=== PATIENT | female | born 1990 | race Caucasian/White ===

== ENCOUNTER 2021-09-28 16:52 | Emergency (ER) | payer SELFPAY ==
[~2021-09-28] VITALS: Ht 152.4 cm; Wt 80.0 kg
[~2021-09-28 16:52] MED LIST: ACET325T9 PO; ALBU0.63 NEB; ALPR0.5T PO; BUTA-14 PO; DICY10CA53 PO; HYDR-3165 PO; OMEP20TA63 PO; ONDA4TAB10 PO; OXYC1TAB15 PO; PNV1TABL25 PO; TRAM50TA PO
[2021-09-28 18:21] VITALS: BP 137/67
[2021-09-28] MEDS ORDERED: ACETAMINOPHEN 500 MG TABLET PO ONE (18:30)
--- NOTE | 2021-09-28 18:54 | RAD ---
XR CHEST 2V History: Reason: cough / Spl. Instructions: / History: Comparison: None. Findings: No consolidation or pleural effusion. Normal heart size. No pneumothorax. Impression: 1. No acute cardiopulmonary process. Electronically signed by: Chester Arciniega DO (09/28/2021 6:51 PM) [facility] [place]
--- NOTE | 2021-09-28 19:19 | PHYS DOC ---
Past History Past Medical History: Anxiety, Asthma, Depression Past Surgical History: Cholecystectomy, , Tubal ligation, Other Smoking: Cigarettes, Less than 1pk/day Alcohol Use: None Drug Use: Amphetamine General Adult EDM: Chief Complaint: HEADACHE HPI: HPI: 31-year-old female presents with cough, headache, congestion, body aches, fatigue. She is concerned about having COVID-19. She has fully vaccinated and has had Covid in the past. She has several COVID-19 and influenza sick contacts lately. Review of Systems: Review of Systems: Constitutional: Denies fever or chills. Body aches, fatigue Eyes: Denies change in visual acuity HENT: Denies nasal congestion or sore throat Respiratory: Cough without shortness of breath Cardiovascular: Denies chest pain or edema GI: Denies abdominal pain, nausea, vomiting, bloody stools or diarrhea : Denies dysuria Musculoskeletal: Denies back pain or joint pain Integument: Denies rash Neurologic: Headache. Denies focal weakness or sensory changes Endocrine: Denies polyuria or polydipsia Lymphatic: Denies swollen glands Psychiatric: Denies depression or anxiety Current Medications: Current Meds: Current Medications Medications (Trade) Dose Ordered Sig/Jose Angel Start Time Stop Time Status Last Admin Dose Admin Acetaminophen (Tylenol) 1,000 mg 1X ONCE 09/28/21 18:30 09/28/21 18:38 DC Allergies: Allergies: Allergies Coded Allergies Type Severity Reaction Last Updated Verified nickel Allergy Intermediate Rash 11/14/13 Yes morphine Adverse Reaction Intermediate Nausea 08/14/15 Yes Physical Exam: PE: Constitutional: Well developed, well nourished, no acute distress, non-toxic appearance. [] HENT: Normocephalic, atraumatic, bilateral external ears normal, oropharynx moist, no oral exudates, nose normal. [] Eyes: PERRLA, EOMI, conjunctiva normal, no discharge. [] Neck: Normal range of motion, no tenderness, supple, no stridor. [] Cardiovascular:Heart rate regular rhythm, no murmur [] Lungs & Thorax: Bilateral breath sounds clear to auscultation [] Abdomen: Bowel sounds normal, soft, no tenderness, no masses, no pulsatile masses. [] Skin: Warm, dry, no erythema, no rash. [] Back: No tenderness, no CVA tenderness. [] Extremities: No tenderness, no cyanosis, no clubbing, ROM intact, no edema. [] Neurologic: Alert and oriented X 3, normal motor function, normal sensory function, no focal deficits noted. [] Psychologic: Affect normal, judgement normal, mood normal. [] Current Patient Data: Vital Signs: Vital Signs Date Time Temp Pulse Resp B/P (MAP) Pulse Ox O2 Delivery O2 Flow Rate FiO2 09/28/21 18:21 98.8 64 18 137/67 (90) 99 Room Air EKG: EKG: [] Radiology/Procedures: Radiology/Procedures: [] Impressions: XR CHEST 2V History: Reason: cough / Spl. Instructions: / History: Comparison: None. Findings: No consolidation or pleural effusion. Normal heart size. No pneumothorax. Impression: 1. No acute cardiopulmonary process. Electronically signed by: Chester Akbar DO (09/28/2021 6:51 PM) [facility] DICTATED AND SIGNED BY: CHESTER AKBAR DO DATE: 09/28/21 185 CC: WAYNE OLMOS DO; EMERGENCY,DEPARTMENT; PCP,NO ~MTH0 0 Heart Score: C/O Chest Pain: N/A Risk Factors: Risk Factors: DM, Current or recent (<one month) smoker, HTN, HLP, family history of CAD, obesity. Risk Scores: Score 0 - 3: 2.5% MACE over next 6 weeks - Discharge Home Score 4 - 6: 20.3% MACE over next 6 weeks - Admit for Clinical Observation Score 7 - 10: 72.7% MACE over next 6 weeks - Early Invasive Strategies Course & Med Decision Making: Course & Med Decision Making Pertinent Labs and Imaging studies reviewed. (See chart for details) Patient's chest x-ray is negative for acute findings. We will swab the patient for influenza and COVID-19. She will be informed when these results are available. She is stable for discharge at this time. Patient is negative for influenza and strep. This is likely COVID-19. [] Dragon Disclaimer: Dragon Disclaimer: This electronic medical record was generated, in whole or in part, using a voice recognition dictation system. Departure Departure: Impression: Primary Impression: COVID-19 Disposition: HOME / SELF CARE / HOMELESS Condition: STABLE Referrals: PCP,JENNIFER (PCP) Patient Instructions: Viral Syndrome Additional Instructions: You have been tested for or diagnosed with COVID-19. It is an infection caused by a new type of coronavirus. COVID-19 will cause cold-like or mild flu symptoms in most. It can cause more severe symptoms like problems breathing in some. There is no treatment for COVID-19. The body will clear the infection over time. Self-care will help to ease discomfort. Steps to Take: Self-Care Rest as needed. Healthy habits may help you feel better. Steps include: Choose healthy foods including fruits and vegetables. Drink water throughout the day. Get plenty of sleep each night. If you smoke, try to quit. It may ease breathing. Avoid alcohol. Keep Others Healthy The virus can spread to others. Droplets are released every time you sneeze or cough. The droplets can get into the mouth, nose, or eyes of people near you and lead to infection. To lower the chances of spreading COVID-19 to others: Stay at home until your doctor has said it is safe to leave. If you tested positive this will mean staying isolated until both of the following are true: At least 7 days have passed since the start of illness. You are free of fever for at least 72 hours without the use of medicine. During this time: - Avoid public areas, events, or transportation. Do not return to work or school until your doctor has said it is safe to do so. - Call ahead if you need to go to a medical center. Let them know you may have COVID-19. It will help them guide you where to go. They may also ask you to wear a facemask when you come to the office. - If you call for emergency medical services, let them know you may have COVID- 19. While at home: - Try to avoid close contact with others. Stay about 6 feet away. - If possible, spend most of your time in a separate room from others. - Use a face mask if you will be in close contact with others such as sharing a room or vehicle. - Have someone wipe down common surfaces in the home. Use household insurance plan specialist every day on areas like doorknobs, counters, or sinks. - Cough or sneeze into a tissue. Throw the tissue away right after use. If a tissue is not available, cough or sneeze into your elbow. - Wash your hands often. Wash them after sneezing or coughing. Use soap and water and wash for at least 20 seconds. Alcohol based hand house cleaner can be used if soap and water is not available. - Do not prepare food for others. Avoid sharing personal items like forks, spoons, or toothbrushes. - Avoid close contact with pets while you are sick. There is no evidence of the virus passing to pets. This is a safety step until more is known about this virus. Isolation can be frustrating. Social interaction can help. Keep in touch with friends and family through phone and tech options. You can still interact with others in your home, just keep a safe distance of about 6 feet. Follow-up: Your doctors office will check in with you to see if there are any changes in your health. You may be asked to keep track of symptoms to share with them. They will also let you know when you are clear to be in public again. Problems to Look Out For: Contact your doctor if your recovery is not going as you expect. Get emergency care if you have problems such as: - Trouble breathing - Nonstop chest pain or pressure - Changes in awareness, confusion, or problems waking - Lips or face have bluish color - Worsening of symptoms If you think you have an emergency, call for emergency medical services right away. As taken from [facility] WAYNE OLMOS DO Sep 28, 2021 19:19
[2021-09-28 20:31] LABS: INFLUENZA A PATIENT NEGATIVE (NEGATIVE); INFLUENZA B PATIENT NEGATIVE (NEGATIVE)
== END 2021-09-28 20:50 | disposition home or self-care (01) ==
LOC: ER 16:52
DX: U07.1 COVID-19 (principal); F41.9 Anxiety disorder, unspecified; J45.909 Unspecified asthma, uncomplicated; F32.9 Major depressive disorder, single episode, unspecified; F17.210 Nicotine dependence, cigarettes, uncomplicated; Z88.5 Allergy status to narcotic agent; Z88.8 Allergy status to other drugs, medicaments and biological substances
CPT/HCPCS: 71046; 87070; 87804; 87880; 99284; C9803; U0003

== ENCOUNTER 2022-01-16 23:38 | Emergency (ER) | payer SELFPAY ==
[~2022-01-16] VITALS: Ht 152.4 cm; Wt 90.9 kg
--- NOTE | 2022-01-17 00:19 | PHYS DOC ---
Past History Past Medical History: Anxiety, Asthma, Bronchitis, Depression, Migraines Past Surgical History: Cholecystectomy Additional Past Surgical Histo: Smoking: Cigarettes, Less than 1pk/day Alcohol Use: None Drug Use: Amphetamine General Adult EDM: Chief Complaint: COUGH HPI: HPI: ".. I am coughing so much .. I puke.. it been constant the last 3 days. ,," " I was at [facility] yesterday..they did a full workup on me..and only said my labs were off..but didnt give me any for my cough...or may that were off.. " Patient is a 31 year old female who presents with complaints of cough spasm to point of vomiting. Pt. was seen yesterday at [facility] and reports having a complete work-up of her chest pain , cough which included CT..of her chest. Patient states however they told her her labs were abnormal or off a little..but they did nothing to correct it. Patient has continued to smoke. D oes have a past history of anxiety, asthma, depression, migraine headache and polysubstance abuse. Has had in past history of cholecystectomy, C-sections, tubal ligations,. Patient is an adamant about never getting any vaccinations. Patient states refused to take any vaccinations since she was a child.. Patient states she has medical friends at ...they and she believes in Herd immunity.. Patient became very angry when I inquired about her refusal to take any vaccinations. Advised I should not ask about her vaccination status. Patient does admit to contact with several individuals that had COVID-19 and influenza. Patient states she has already had COVID in the past. Pt. implied she needed a narcotic cough suppressant. Reviewed patient's record from prior visit on 09/28/21-at that time she reports she was fully vaccinated. Patient left from [facility] before completing her evaluation. Patient encouraged to return if she wished to complete her evaluation. Note pt.refusing to wear a mask while in [facility]. Review of Systems: Review of Systems: Constitutional: Denies fever or chills Eyes: Denies change in visual acuity HENT: Complains of nasal congestion, and drainage Respiratory: Complains of coughing spasms, cough cough is nonproductive. Complains of wheezing . Cardiovascular: Denies chest pain or edema GI: Denies abdominal pain, nausea, , bloody stools or diarrhea . Complains of vomiting after coughing spasms : Denies dysuria Musculoskeletal: Denies back pain or joint pain Integument: Denies rash Neurologic: Complains headache after coughing specimen. Patient denies, focal weakness or sensory changes Endocrine: Denies polyuria or polydipsia Lymphatic: Denies swollen glands Psychiatric: Denies depression or anxiety Family History: Family History: Noncontributory Current Medications: Current Meds: See nursing for home meds Allergies: Allergies: Allergies Coded Allergies Type Severity Reaction Last Updated Verified nickel Allergy Intermediate Rash 11/14/13 Yes morphine Adverse Reaction Intermediate Nausea 08/14/15 Yes Physical Exam: PE: Constitutional: Reports moderate acute distress, non-toxic appearance. [] HENT: Normocephalic, atraumatic, bilateral external ears normal, oropharynx moist, no oral exudates, nose swollen turbinates and clear rhinorrhea Eyes: PERRLA, EOMI, conjunctiva normal, no discharge. [] Neck: Normal range of motion, no tenderness, supple, no stridor. [] Cardiovascular:Heart rate regular rhythm, no murmur [] Lungs & Thorax: Bilateral breath sounds equal apex with scattered wheezes on auscultation [] Abdomen: Bowel sounds normal, soft, no tenderness, no masses, no pulsatile christine s. Surgery scars Skin: Warm, dry, no erythema, no rash. [] Back: No tenderness, no CVA tenderness. [] Extremities: No tenderness, no cyanosis, no clubbing, ROM intact, no edema. Ambulatory without problems. Neurologic: Alert and oriented X 3, moves all extremities on request, has distal sensory,, no focal deficits noted. [] Psychologic: Affect angry anxious,, judgement normal, mood normal. [] Current Patient Data: Vital Signs: Vital Signs Date Time Temp Pulse Resp B/P (MAP) Pulse Ox O2 Delivery O2 Flow Rate FiO2 01/16/22 23:53 98.2 72 16 124/75 (91) 96 Room Air EKG: EKG: Refused [] Radiology/Procedures: Radiology/Procedures: Refused [] Heart Score: C/O Chest Pain: Yes Risk Factors: Risk Factors: DM, Current or recent (<one month) smoker, HTN, HLP, family history of CAD, obesity. Risk Scores: Score 0 - 3: 2.5% MACE over next 6 weeks - Discharge Home Score 4 - 6: 20.3% MACE over next 6 weeks - Admit for Clinical Observation Score 7 - 10: 72.7% MACE over next 6 weeks - Early Invasive Strategies Course & Med Decision Making: Course & Med Decision Making Pertinent Labs and Imaging studies reviewed. (See chart for details) Patient left before completing labs, EKG or x-rays or complete evaluation.. Patient advised I should not ask about her vaccination status or her exposures. Impression: 1. Bronchitis 2 Tobacco Use 3. Hx.of Polysubstance Use ( Methamphetamine) 4. Hx of Non-vaccination- 5. Pt. rapid COVID and Flu were negative. [] Dragon Disclaimer: Dragon Disclaimer: This electronic medical record was generated, in whole or in part, using a voice recognition dictation system. Departure Departure: Referrals: PCP,NO (PCP) Scripts Azithromycin (ZITHROMAX) 250 Mg Tablet 250 MG PO DAILY for ANTI-BIOTIC for 5 Days, #5 TAB 0 Refills Prov: NATHANIEL NICHOLAS MD 01/17/22 Dragayanna Disclaimer This chart was dictated in whole or in part using Voice Recognition software in a busy, high-work load, and often noisy Emergency Department environment. It may contain unintended and wholly unrecognized errors or omissions. NATHANIEL NICHOLAS MD Jan 17, 2022 00:19
[2022-01-17] MEDS: ALBUTEROL SULFATE 8GM INHALER. INH ONE (01:00)
[2022-01-17] MEDS: predniSONE 10 MG TABLET. PO ONE (01:14)
[2022-01-17] MEDS: AZITHROMYCIN 250 MG TABLET. PO ONE (01:14)
[2022-01-17] MEDS ORDERED: AZIT250T PO (02:50)
[2022-01-17 02:58] VITALS: BP 133/83
[2022-01-17 03:01] LABS: BARBITURATES NEG (NEG); BENZODIAZEPINES NEG (NEG); CANNABINOIDS NEG (NEG); COCAINE NEG (NEG); METHADONE NEG (NEG); PHENCYCLIDINE NEG (NEG)
[2022-01-17 03:02] LABS: AMPHETAMINE/METHAMPHETAMINE NEG (NEG)
[2022-01-17 03:08] LABS: BACTERIA,URINE FEW /HPF (0-FEW); CLARITY,URINE CLEAR; COLOR,URINE YELLOW; GLUCOSE,URINE NEG (NEG); NITRITE,URINE NEG (NEG); RBC,URINE 0 /HPF (0-2); SQUAMOUS EPITHELIAL CELL,UR MANY /LPF; UROBILINOGEN,URINE 0.2 mg/dL (0.2 mg/dL)
[2022-01-17 03:16] LABS: INFLUENZA A PATIENT NEGATIVE (NEGATIVE); INFLUENZA B PATIENT NEGATIVE (NEGATIVE)
== END 2022-01-17 02:55 | disposition home or self-care (01) ==
LOC: ER 23:38
DX: J40 Bronchitis, not specified as acute or chronic (principal); F15.10 Other stimulant abuse, uncomplicated; R51.9 Headache, unspecified; F17.210 Nicotine dependence, cigarettes, uncomplicated; Z90.49 Acquired absence of other specified parts of digestive tract; Z20.822 Contact with and (suspected) exposure to COVID-19
CPT/HCPCS: 36415; 80307; 81001; 87086; 87428; 94640; 99283; J7512; 94664